=== PATIENT | male | born 1985 | race Two or more races ===

== ENCOUNTER 2022-03-16 23:49 | Emergency (ER) | payer OTHER ==
[~2022-03-16] VITALS: Ht 190.5 cm; Wt 145.1 kg
[2022-03-17 02:53] VITALS: BP 136/90
--- NOTE | 2022-03-17 05:03 | NUR ---
CALLED [facility] FOR IMAGING READ
== END 2022-03-17 05:22 | disposition home or self-care (01) ==
LOC: ER 23:53
DX: R22.42 Localized swelling, mass and lump, left lower limb (principal); M79.675 Pain in left toe(s); J45.909 Unspecified asthma, uncomplicated; Z87.39 Personal history of other diseases of the musculoskeletal system and connective tissue
CPT/HCPCS: 73630-TC